=== PATIENT | male | born 1955 | race African-American/Black ===

== ENCOUNTER 2024-06-07 13:36 | Inpatient (IN) | payer OTHER ==
[2024-06-07 14:13] VITALS: BMI 21.8
[2024-06-07] MEDS ORDERED: LOPERAMIDE HCL 2 MG CAPSULE PO PRN (14:45)
[2024-06-07] MEDS ORDERED: BENZOCAINE/MENTHOL (CHLORASEPTIC ) LOZENGE MM PRN (14:45)
[2024-06-07] MEDS ORDERED: NICOTINE POLACRILEX 2 MG LOZENGE BC PRN (14:45)
[2024-06-07] MEDS ORDERED: MAGNESIUM HYDROX 2400MG/30ML ORAL SUSPENSION 30 ML CUP PO PRN (14:45)
[2024-06-07] MEDS ORDERED: DOCUSATE SODIUM 100 MG CAPSULE (FP) PO PRN (14:45)
[2024-06-07] MEDS ORDERED: IBUPROFEN 400 MG TABLET (FP) PO PRN (14:45)
[2024-06-07] MEDS ORDERED: guaiFENesin 600 MG TABLET.ER (FP) PO PRN (14:45)
[2024-06-07] MEDS ORDERED: BENZONATATE 200 MG CAPSULE PO PRN (14:45)
[2024-06-07] MEDS ORDERED: NICOTINE POLACRILEX 2 MG GUM BUC PRN (14:45)
[2024-06-07] MEDS ORDERED: POLYETHYLENE GLYCOL (HEALTHYLAX) 3350 17 GM PACKET PO PRN (14:45)
[2024-06-07] MEDS ORDERED: P-EPHED 60MG/TRIPROLIDI 2.5MG TABLET PO PRN (14:45)
[2024-06-07] MEDS ORDERED: MAG HYDROX/AL HYDROX/SIMETH 30 ML UNIT-DOSE CUP PO PRN (14:45)
[2024-06-07] MEDS ORDERED: NALOXONE (NARCAN) HCL 4 MG/0.1 ML SPRAY NS PRN (14:45)
[2024-06-07] MEDS ORDERED: ACETAMINOPHEN 325 MG TABLET (FP) ONE (16:50)
[2024-06-07] MEDS ORDERED: IBUPROFEN 600 MG TABLET (FP) PO ONE (16:51)
[2024-06-07] MEDS: IBUPROFEN 600 MG TABLET (FP) PO PRN (16:55)
[2024-06-07] MEDS ORDERED: ALBUTEROL SO4 HFA INHALER IH PRN (17:31)
[2024-06-07] MEDS: THIAMINE 100 MG TABLET PO SCH (21:36)
[2024-06-07] MEDS: APIXABAN 5 MG TABLET PO SCH (21:36)
[2024-06-07] MEDS: MELATONIN 5 MG TABLETS PO SCH (21:36)
[2024-06-07] MEDS: TIMOLOL 0.5% OPHTHALMIC SOL 5 ML BOTTLE OU SCH (21:38)
[2024-06-07] MEDS ORDERED: PATIENT'S OWN MEDICATION (NON-FORMULARY) (Brimonidine/Dorzolamide/Pf [Brimonidine 0.15%-Do OU SCH (22:00)
[2024-06-07] MEDS: DORZOLAMIDE 2% HCL OPHTHALMIC SOLUTION 10 ML BOTTLE OU SCH (22:32)
[2024-06-07 22:38] LABS: URINE APPEARANCE CLEAR; URINE BILIRUBIN NEGATIVE (NEGATIVE); URINE COLOR YELLOW; URINE GLUCOSE (UA) NEGATIVE (NEGATIVE); URINE KETONE TRACE (NEGATIVE); URINE LEUK ESTERASE NEGATIVE (NEGATIVE); URINE NITRITE NEGATIVE (NEGATIVE); URINE PROTEIN NEGATIVE (NEGATIVE); URINE UROBILINOGEN 0.2 mg/dL (0.2-1.0)
[2024-06-08] MEDS: TAMSULOSIN HCL 0.4 MG CAP PO SCH (07:35)
[2024-06-08 10:13] LABS: HEMOGLOBIN 11.2 GM/dL (11.7-16.9); MCH 24.3 pg (25.7-33.7); MEAN CELL VOLUME 75.9 fl (80-96); MEAN PLT VOLUME 8.6 fl (7.5-11.1); PLATELET COUNT 276 10^3/uL (134-434); RBC 4.62 M/mm3 (4.00-5.60); WHITE BLOOD COUNT 3.6 K/mm3 (4.0-10.0)
[2024-06-08] MEDS: PRENATAL VITAMINS W/ FOLIC ACID TABLET (FP) PO SCH (10:17)
[2024-06-08 10:22] LABS: POTASSIUM 4.7 mmol/L (3.5-5.1)
[2024-06-08 10:25] LABS: ALBUMIN 3.1 g/dl (3.4-5.0); BLOOD UREA NITROGEN 19.1 mg/dL (7-18)
[2024-06-08 10:27] LABS: CALCIUM 9.1 mg/dL (8.5-10.1)
[2024-06-08 10:29] LABS: CREATININE 0.8 mg/dL (0.55-1.3)
[2024-06-08 10:30] LABS: BILIRUBIN,TOTAL 0.2 mg/dL (0.2-1); TOT PROT 7.3 g/dl (6.4-8.2)
[2024-06-08 14:16] LABS: SYPHILIS W/ RPR CONF NON-REACTIVE (NONREACTIVE)
[2024-06-08] MEDS: ACETAMINOPHEN 325 MG TABLET (FP) PO PRN (15:34)
[2024-06-08] MEDS: SUVOREXANT 10 MG TABLET PO PRN (21:17)
[2024-06-10] MEDS: LIDOCAINE HCL 5% TOP OINTMENT 50 GM TUBE TP ONE (13:50)
[2024-06-10] MEDS: ACAMPROSATE CALCIUM 333 MG TABLET.DR PO SCH (14:32)
[2024-06-11] MEDS: LIDOCAINE 5% TOPICAL PATCH TP SCH (09:53)
[2024-06-11] MEDS: LIDOCAINE PATCH REMOVAL MC SCH (21:47)
[2024-06-12] MEDS: NALTREXONE HCL 50 MG TABLET PO ONE (15:08)
[2024-06-12] MEDS: SUVOREXANT 15 MG TABLET PO PRN (21:40)
[2024-06-12] MEDS: BACLOFEN 10 MG TABLET (FP) PO SCH (21:44)
[2024-06-16] MEDS: SUVOREXANT 15 MG TABLET PO PRN (22:11)
[2024-06-20 07:04] VITALS: RESP 18
[2024-06-21 07:55] VITALS: TEMP 97.3
[2024-06-21 09:16] VITALS: BP 115/71; PULSE 83
== END 2024-06-21 10:04 | disposition home or self-care (01) | DRG 895 ==
LOC: YASAS 13:36 → Y3NR 17:09 → Y5N 06-08 08:52
PROVIDERS: ADMIT Psychiatry & Neurology Pain Medicine; ATTEND Psychiatry & Neurology Pain Medicine
PROC: HZ42ZZZ Group Counseling for Substance Abuse Treatment, Cognitive-Behavioral (ICD-10-PCS; principal; 2024-06-07)
DX: F14.20 Cocaine dependence, uncomplicated (principal); F19.282 Other psychoactive substance dependence with psychoactive substance-induced sleep disorder; F10.10 Alcohol abuse, uncomplicated; F17.210 Nicotine dependence, cigarettes, uncomplicated; I25.10 Atherosclerotic heart disease of native coronary artery without angina pectoris; I10 Essential (primary) hypertension; I48.91 Unspecified atrial fibrillation; J45.909 Unspecified asthma, uncomplicated; M25.561 Pain in right knee; N40.0 Benign prostatic hyperplasia without lower urinary tract symptoms; R26.89 Other abnormalities of gait and mobility; Z99.89 Dependence on other enabling machines and devices; Z79.01 Long term (current) use of anticoagulants; Z88.1 Allergy status to other antibiotic agents
CPT/HCPCS: 36415; 80053; 80305; 80307; 81003; 85027; 86780; 86803; 87811; 93005; 93010; J0475